=== PATIENT | female | born 1990 | race Two or more races ===

== ENCOUNTER 2022-01-07 14:16 | Emergency (ER) | payer SELFPAY ==
[~2022-01-07] VITALS: Ht 157.5 cm; Wt 104.3 kg
[2022-01-07 15:27] VITALS: BP 141/88
[2022-01-07] MEDS ORDERED: KETOROLAC TROMETH 60MG/2ML VIAL IM ONE (17:00)
[2022-01-07] MEDS ORDERED: TAM04C PO (17:15)
[2022-01-07] MEDS ORDERED: IBUP800T27 PO (17:15)
== END 2022-01-07 17:22 | disposition home or self-care (01) ==
LOC: ER 14:16
DX: N83.202 Unspecified ovarian cyst, left side (principal); N20.0 Calculus of kidney; M47.896 Other spondylosis, lumbar region
CPT/HCPCS: 74176; 81002; 81025; 96372; 99284; J1885